=== PATIENT | male | born 1970 | race Caucasian/White ===

== ENCOUNTER 2023-03-15 17:35 | Observation (INO) | payer BC ==
[~2023-03-15 17:35] MED LIST: Iopamidol 300 61% 100 ML VIAL FS ONE
[2023-03-15 18:24] LABS: #Monocytes 1.4 10x3/uL (0.0-1.1); #Neutrophils 10.7 10x3/uL (1.5-8.4); %Basophils 0.3 % (0.0-2.0); %Eosinophils 0.3 % (0.0-6.0); %Lymphocytes 8.5 % (18.0-47.0); %Monocytes 10.3 % (0.0-10.0); %Neutrophils 80.2 % (40.0-75.0); Hematocrit 52.4 % (38.8-50.0); Hemoglobin 18.6 g/dL (13.5-17.5); Mean Corpuscular HGB CONC 35.5 g/dL (32.0-36.0); Mean Corpuscular Hemoglobin 32.2 pg (27.0-33.0); Mean Corpuscular Volume 90.7 fl (81.2-95.1); Mean Platelet Volume 10.6 fl (7.4-10.4); Platelet Count 173 10x3/uL (150-450); RBC Distribution Width 12.2 % (11.5-14.5); Red Blood Cell (RBC) Count 5.78 10x6/uL (4.32-5.72); White Blood Cell (WBC) Count 13.4 10x3/uL (3.5-10.5)
[2023-03-15] MEDS ORDERED: Ketorolac Tromethamine 30 MG/ML VIAL ONE (18:24)
[2023-03-15] MEDS ORDERED: Acetaminophen 500 MG TAB ONE (18:24)
[2023-03-15 18:39] LABS: ALT (SGPT) 22 U/L (8-55); AST (SGOT) 16 U/L (5-34); Albumin 4.3 g/dL (3.5-5.0); Alkaline Phosphatase 51 U/L (40-110); Anion Gap 14 mmol/L (10-20); BUN (Urea Nitrogen) 14 mg/dL (8.4-25.7); Bilirubin, Total 1.6 mg/dL (0.2-1.2); Calc. Creatinine Clearance 0 mL/min (70-130); Calcium 9.6 mg/dL (7.8-10.44); Carbon Dioxide 30 mmol/L (22-29); Chloride 97 mmol/L (98-107); Estimated GFR 97; Globulin 3.2 g/dL (2.4-3.5); Glucose 112 mg/dL (70-105); Lipase 18 U/L (8-78); Potassium 3.8 mmol/L (3.5-5.1); Protein, Total 7.5 g/dL (6.0-8.3); Sodium 137 mmol/L (136-145)
[2023-03-15 19:29] LABS: Bilirubin Neg (Negative); Blood, Urine Negative (Negative); Glucose, Urine (Dipstick) Normal (Negative); Ketone, Urine Negative (Negative); Leukocyte 25 (Negative); Nitrite Negative (Negative); Protein, Urine (Dipstick) 15 mg/dl (Neg-Trace); Specific Gravity, Urine 1.005 (1.005-1.030); Urobilinogen Normal mg/dL (Less than 2)
[2023-03-15 19:36] LABS: Clarity Clear (Clear)
[2023-03-15 19:40] LABS: Bacteria/HPF Rare-Few HPF (None Seen); CAUTI Indications for Culture Pelvic or flank pain; RBC/HPF 0-3 HPF (0-3); Squamous Epithelial 0-3 HPF (0-3); WBC/HPF 0-3 HPF (0-3)
[2023-03-15 19:41] LABS: Urine Culture Reflex No No
[2023-03-15] MEDS ORDERED: Piperacillin/Tazobactam 3.375 GM VIAL ONE (20:23)
[2023-03-15 22:25] LABS: SARS-CoV-2 NAA Rapid Test Not Detected (NotDetected)
[2023-03-15 23:39] VITALS: BMI 36.9
[2023-03-16] MEDS ORDERED: Acetaminophen 325 MG TAB PO PRN (00:36)
[2023-03-16] MEDS ORDERED: Ondansetron PF 4 MG/2 ML Vial IVP PRN ×2 (00:36→06:47)
[2023-03-16] MEDS ORDERED: Sodium Chloride 0.9% 1,000 ML IV SCH (00:45)
[2023-03-16] MEDS ORDERED: Piperacillin/Tazobactam 3.375 GM in Sodium Chloride 0.9% 100 ML IVPB SCH (01:00)
[2023-03-16] MEDS ORDERED: Promethazine HCl 25 MG/ML VIAL IM PRN (06:47)
[2023-03-16] MEDS ORDERED: Morphine 2 MG/ML VIAL SLOW IVP PRN (06:47)
[2023-03-16] MEDS ORDERED: Ipratropium/Albuterol 3 ML NEB NEB PRN (06:47)
[2023-03-16] MEDS ORDERED: Morphine 4 MG/ML VIAL SLOW IVP PRN (06:47)
[2023-03-16] MEDS ORDERED: hydrALAZINE 20 MG/ML VIAL SLOW IVP PRN (06:47)
[2023-03-16] MEDS ORDERED: Famotidine/PF 20 mg/2ml Vial SLOW IVP SCH (09:00)
[2023-03-16] MEDS ORDERED: Ketorolac Tromethamine 30 MG/ML VIAL IVP SCH (12:00)
[2023-03-16] MEDS ORDERED: EPINEPHrine 1 MG/ML VIAL ONE (12:47)
[2023-03-16] MEDS ORDERED: Bupivacaine PF 0.5% 30 ML VIAL ONE (12:47)
[2023-03-16] MEDS ORDERED: PROPOFOL 20 ML ONE (13:01)
[2023-03-16] MEDS ORDERED: fentaNYL 50 mcg/mL 1 mL Vial ONE ×2 (13:01)
[2023-03-16] MEDS ORDERED: Rocuronium Bromide 10 MG/ML (10ML VIAL) ONE (13:01)
[2023-03-16] MEDS ORDERED: CEFAZOLIN 2 GM VIAL ONE (13:08)
[2023-03-16] MEDS ORDERED: Glycopyrrolate 0.2 MG/ML 5 ML SYRINGE ONE (13:20)
[2023-03-16] MEDS ORDERED: Ondansetron PF 4 MG/2 ML Vial ONE (13:20)
[2023-03-16] MEDS ORDERED: Dexamethasone 20 MG/5 ML VIAL ONE (13:20)
[2023-03-16] MEDS ORDERED: Ketorolac Tromethamine 30 MG/ML VIAL ONE (13:23)
[2023-03-16] MEDS ORDERED: traMADol HCl 50 MG TAB PO PRN (14:34)
[2023-03-16 16:51] VITALS: BP 114/59; TEMP 99
== END 2023-03-16 17:20 | disposition home or self-care (01) ==
LOC: CSHERS 17:35 → CSHTELE 20:33
PROVIDERS: ADMIT Surgery; ATTEND Surgery
PROC: 0DTJ4ZZ Resection of Appendix, Percutaneous Endoscopic Approach (ICD-10-PCS; principal; 2023-03-16)
DX: K35.80 Unspecified acute appendicitis (principal); E78.5 Hyperlipidemia, unspecified; I10 Essential (primary) hypertension; Z79.82 Long term (current) use of aspirin; Z79.899 Other long term (current) drug therapy
CPT/HCPCS: 36415; 36416; 74177; 80053; 81001; 83690; 85025; 88304; 93005; 93010; 96365; 96375; 96376; A4649; G0378; J0171; J1100; J1885; J2270; J2272; J2405; J2543; J2704; J3010; J3490; Q9967; S0020; S0028; U0002